=== PATIENT | female | born 1965 | race African-American/Black ===

== ENCOUNTER 2024-04-09 21:41 | Emergency (ER) | payer MEDICARE, MEDICAID ==
[2024-04-09] MEDS ORDERED: Ondansetron PF 4 MG/2 ML Vial ONE (22:52)
[2024-04-09 22:59] LABS: #Basophils 0.06 10x3/uL (0.0-0.2); #Eosinphils 0.26 10x3/uL (0.0-0.5); #Monocytes 0.79 10x3/uL (0.0-1.1); #Neutrophils 3.53 10x3/uL (1.5-8.4); %Basophils 0.8 % (0.0-2.0); %Eosinophils 3.3 % (0.0-6.0); %Lymphocytes 40.8 % (18.0-47.0); %Monocytes 10.1 % (0.0-10.0); %Neutrophils 44.9 % (40.0-75.0); Hematocrit 38.2 % (34.9-44.5); Hemoglobin 13.2 g/dL (12.0-15.5); Mean Corpuscular HGB CONC 34.6 g/dL (32.0-36.0); Mean Corpuscular Hemoglobin 25.9 pg (27.0-33.0); Mean Platelet Volume 10.3 fL (7.4-10.4); Platelet Count 248 10x3/uL (150-450); RBC Distribution Width 13.3 % (11.5-14.5); Red Blood Cell (RBC) Count 5.09 10x6/uL (3.90-5.03); White Blood Cell (WBC) Count 7.9 10x3/uL (3.5-10.5)
[2024-04-09 23:04] LABS: ALT (SGPT) 29 U/L (8-55); AST (SGOT) 31 U/L (5-34); Albumin 4.1 g/dL (3.5-5.0); Alkaline Phosphatase 93 U/L (40-110); Anion Gap 17 mmol/L (10-20); BUN (Urea Nitrogen) 33 mg/dL (9.8-20.1); Bilirubin, Total 0.6 mg/dL (0.2-1.2); Calc. Creatinine Clearance 0 mL/min (70-130); Calcium 9.4 mg/dL (7.8-10.44); Carbon Dioxide 32 mmol/L (22-29); Chloride 95 mmol/L (98-107); Estimated GFR 36; Globulin 3.9 g/dL (2.4-3.5); Glucose 116 mg/dL (70-105); Lipase 36 U/L (8-78); Sodium 141 mmol/L (136-145)
[2024-04-09 23:08] LABS: Critical Call Chemistry ERS.WJM@2306; Potassium 2.6 mmol/L (3.5-5.1)
[2024-04-09 23:11] LABS: Troponin I Less than 0.010 ng/mL (< 0.028)
== END 2024-04-10 00:33 | disposition home or self-care (01) ==
LOC: CSHERS 21:41
DX: K59.00 Constipation, unspecified (principal); E87.6 Hypokalemia; I11.0 Hypertensive heart disease with heart failure; I50.9 Heart failure, unspecified
CPT/HCPCS: 74177; 80053; 83690; 84484; 85025; 93005; J2405